=== PATIENT | female | born 1990 | race Caucasian/White ===

== ENCOUNTER 2018-07-31 09:17 | Emergency (ER) | payer SELFPAY ==
[~2018-07-31] VITALS: Ht 165.1 cm; Wt 69.9 kg
--- NOTE | 2018-07-31 09:30 | NUR ---
PATIENT HAD A WITNESS SEIZURE IN FRONT OF NURSES STATION, INTERMITTENT 5-10 SECS TONIC-CLONIC. ASSISTED PATIENT TO FLOOR, TURNED TO HER SIDE WITH HEAD AND AIRWAY PROTECTED. PATIENT ASSISTED TO BED AND TRANSFERRED TO A ROOM.
--- NOTE | 2018-07-31 09:35 | NUR ---
IV LINE ESTABLISHED ON LEFT HAND G20, BLOOD DRAWN SENT TO LAB. SIDERAILS PROTECTED, SEIZURE PRECAUTION OBSERVED AT ALL TIMES. VITALS STABLE. NO DISTRESS NOTED.
[2018-07-31] MEDS ORDERED: LORAZEPAM INJ 2 MG/ML VIAL ONE (09:37)
[2018-07-31 09:41] LABS: BASOPHILS # (AUTO) 0.1 /CMM (0.0-0.2); EOSINOPHILS % (AUTO) 0.4 % (0.0-6.0); HEMATOCRIT 39 % (33-45); HEMOGLOBIN 12.8 g/dL (11.5-14.8); LYMPHOCYTES # (AUTO) 3.6 /CMM (0.8-4.8); LYMPHOCYTES % (AUTO) 35.8 % (20.0-44.0); MEAN CORPUSCULAR HGB CONC 33 g/dl (31.0-36.0); MEAN CORPUSCULAR VOLUME 90 fL (82-100); MONOCYTES # (AUTO) 0.9 /CMM (0.1-1.30); MONOCYTES % (AUTO) 8.5 % (2.0-12.0); NEUTROPHILS # (AUTO) 5.5 /CMM (1.8-8.9); NEUTROPHILS % (AUTO) 54.3 % (43.0-81.0); PLATELET COUNT (AUTO) 507 /CMM (150-450); RED BLOOD CELL COUNT(AUTO) 4.32 MIL/uL (4.0-5.2); WHITE BLOOD COUNT (AUTO) 10.1 K/uL (4.3-11.0)
[2018-07-31 09:52] LABS: CREATININE 0.8 mg/dL (0.6-1.3); POTASSIUM 3.6 mmol/L (3.5-5.1)
[2018-07-31 09:57] LABS: BILIRUBIN,TOTAL 0.2 mg/dL (0.2-1.0); TOTAL PROTEIN, SERUM 8.5 g/dL (6.4-8.2)
[2018-07-31 09:58] LABS: SALICYLATE 1.5 mg/dL (2.8-20.0)
[2018-07-31] MEDS ORDERED: LORAZEPAM INJ 2 MG/ML VIAL IV ONE (10:00)
[2018-07-31 14:00] VITALS: BP 130/80
[2018-07-31 14:06] LABS: APPEARANCE,URINE Clear (CLEAR); BILIRUBIN,URINE Negative (NEGATIVE); BLOOD, URINE Negative Ery/uL (NEGATIVE); COLOR,URINE Yellow (YELLOW); KETONES,URINE Negative (NEGATIVE); LEUKOCYTE ESTERASE ,URINE Negative (NEGATIVE); NITRITE, URINE Negative (NEGATIVE); PROTEIN,URINE Negative (NEGATIVE); UGLUCOSE Negative (NEGATIVE); UROBILINOGEN,URINE 0.2 EU/dL (0.2)
[2018-07-31] MEDS ORDERED: ONDANSETRON HCL/PF 4 MG/2 ML VIAL ONE (14:15)
--- NOTE | 2018-07-31 14:19 | NUR ---
Patient discharged to home in stable condition. Written and verbal after care instructions given. Patient verbalizes understanding of instruction.IV removed. Catheter intact and site benign. Pressure and 4x4 applied to site. No bleeding noted.
[2018-07-31] MEDS ORDERED: ONDANSETRON HCL/PF - ER 4 MG/2 ML VIAL IV ONE (14:30)
== END 2018-07-31 14:21 | disposition home or self-care (01) ==
LOC: ER 09:22
DX: F10.229 Alcohol dependence with intoxication, unspecified (principal); G40.409 Other generalized epilepsy and epileptic syndromes, not intractable, without status epilepticus; Y90.8 Blood alcohol level of 240 mg/100 ml or more
CPT/HCPCS: 36415; 80048; 80076; 80305; 80307; 80329; 81001; 85025; 96374; 99283; G0480; J2060; J2405 ×2; 81000-TC

== ENCOUNTER 2018-07-31 23:19 | Emergency (ER) | payer SELFPAY ==
[~2018-07-31] VITALS: Ht 160 cm; Wt 62.1 kg
--- NOTE | 2018-07-31 23:25 | NUR ---
PT [id number] FROM [address] FOR ETOH. PATIENT REFUSING TO ANSWER ANY QUESTIONS. PT ON MONITOR IN BED 13. VSS. WILL CONTINUE TO MONITOR.
[2018-07-31] MEDS ORDERED: AMMONIA NASAL INHALATION 1 EA PACK NAS ONE (23:26)
--- NOTE | 2018-07-31 23:52 | NUR ---
URINE COLLECTED AND SENT TO LAB
--- NOTE | 2018-07-31 23:55 | NUR ---
PHLEB AT BEDSIDE FOR LAB DRAW
[2018-07-31 23:56] LABS: APPEARANCE,URINE Clear (CLEAR); BILIRUBIN,URINE Negative (NEGATIVE); BLOOD, URINE Negative Ery/uL (NEGATIVE); COLOR,URINE Light yellow (YELLOW); KETONES,URINE Negative (NEGATIVE); LEUKOCYTE ESTERASE ,URINE Negative (NEGATIVE); NITRITE, URINE Negative (NEGATIVE); PROTEIN,URINE Negative (NEGATIVE); UGLUCOSE Negative (NEGATIVE); UROBILINOGEN,URINE 0.2 EU/dL (0.2)
--- NOTE | 2018-07-31 23:57 | NUR ---
TECH AT BEDSIDE FOR EKG
[2018-07-31 23:59] LABS: BASOPHILS # (AUTO) 0.1 /CMM (0.0-0.2); BASOPHILS % (AUTO) 0.6 % (0.0-2.0); EOSINOPHILS % (AUTO) 0.3 % (0.0-6.0); HEMATOCRIT 36 % (33-45); LYMPHOCYTES # (AUTO) 3.1 /CMM (0.8-4.8); LYMPHOCYTES % (AUTO) 35.8 % (20.0-44.0); MEAN CORPUSCULAR HGB CONC 34 g/dl (31.0-36.0); MEAN CORPUSCULAR VOLUME 88 fL (82-100); MONOCYTES # (AUTO) 0.4 /CMM (0.1-1.30); NEUTROPHILS % (AUTO) 58.3 % (43.0-81.0); PLATELET COUNT (AUTO) 461 /CMM (150-450); RED BLOOD CELL COUNT(AUTO) 4.05 MIL/uL (4.0-5.2); WHITE BLOOD COUNT (AUTO) 8.6 K/uL (4.3-11.0)
[2018-08-01 00:13] LABS: CALCIUM, SERUM 8.9 mg/dL (8.5-10.1); CREATININE 0.7 mg/dL (0.6-1.3); POTASSIUM 3.9 mmol/L (3.5-5.1)
[2018-08-01 00:19] LABS: ALBUMIN 3.6 g/dL (3.4-5.0); BILIRUBIN,DIRECT 0.1 mg/dL (0.0-0.2); BILIRUBIN,TOTAL 0.1 mg/dL (0.2-1.0); TOTAL PROTEIN, SERUM 7.6 g/dL (6.4-8.2)
--- NOTE | 2018-08-01 01:22 | NUR ---
BG 77. MD AWARE.
--- NOTE | 2018-08-01 01:32 | NUR ---
JUICE AND SANDWICH OFFERED.
[2018-08-01] MEDS ORDERED: IBUPROFEN 400 MG TABLET ONE (04:36)
[2018-08-01] MEDS ORDERED: ONDANSETRON 4 MG TAB.RAPDIS ONE (04:39)
[2018-08-01 04:54] VITALS: BP 125/74
[2018-08-01] MEDS ORDERED: IBUPROFEN 400 MG TABLET PO ONE (05:00)
[2018-08-01] MEDS ORDERED: ONDANSETRON 4 MG TAB.RAPDIS SL ONE (05:00)
--- NOTE | 2018-08-01 05:11 | NUR ---
Patient is resting comfortably in bed with eyes closed. Easily aroused. VSS.
--- NOTE | 2018-08-01 05:17 | NUR ---
IV removed. Catheter intact and site benign. Pressure and 4x4 applied to site. No bleeding noted.Patient discharged to home in stable condition. Written and verbal after care instructions given. Patient verbalizes understanding of instruction. PT AMBULATORY WITH STEADY GAIT.
== END 2018-08-01 05:18 | disposition home or self-care (01) ==
LOC: ER 23:23
DX: F10.129 Alcohol abuse with intoxication, unspecified (principal); R00.0 Tachycardia, unspecified; R56.9 Unspecified convulsions; F13.10 Sedative, hypnotic or anxiolytic abuse, uncomplicated; Y90.8 Blood alcohol level of 240 mg/100 ml or more
CPT/HCPCS: 36415; 80048; 80076; 80305; 80307; 81001; 82962; 84703; 85025; 93005; 99284; Q0162; 81000-TC; G0480